=== PATIENT | male | born 1940 | race Caucasian/White ===

== ENCOUNTER → 2020-05-02 | Outpatient (CLI) | payer OTHER ==
[~2020-05-02] MED LIST: ACID REFLUX; ASPIRIN EC81 M1 PO; LISINOPRIL5 MG PO; LOVASTAT40; METAMUCIL283 GM; TRAZODONE 150150 M1 PO; ZYRTEC 10 MG TA10 MG PO
== END ==
LOC: LAB 09:45
PROVIDERS: ATTEND Anesthesiology
DX: Z01.812 Encounter for preprocedural laboratory examination (principal); Z20.828 Contact with and (suspected) exposure to other viral communicable diseases